=== PATIENT | male | born 1940 | race Caucasian/White ===

== ENCOUNTER 2023-10-03 10:11 | Outpatient (CLI) | payer OTHER ==
[2023-10-03 11:29] LABS: Hematocrit 39.3 % (38.8-50.0); Hemoglobin 13.1 g/dL (13.5-17.5); Mean Corpuscular HGB CONC 33.3 g/dL (32.0-36.0); Mean Corpuscular Hemoglobin 29.4 pg (27.0-33.0); Mean Corpuscular Volume 88.3 fl (81.2-95.1); Platelet Count 167 10x3/uL (150-450); RBC Distribution Width 13.5 % (11.5-14.5); Red Blood Cell (RBC) Count 4.45 10x6/uL (4.32-5.72); White Blood Cell (WBC) Count 5.6 10x3/uL (3.5-10.5)
[2023-10-03 11:30] LABS: Anion Gap 11 mmol/L (10-20); BUN (Urea Nitrogen) 29 mg/dL (8.4-25.7); Calc. Creatinine Clearance 0 mL/min (70-130); Calcium 8.7 mg/dL (7.8-10.44); Carbon Dioxide 20 mmol/L (23-31); Chloride 113 mmol/L (98-107); Estimated GFR 36; Glucose 158 mg/dL (83-110); Potassium 4.2 mmol/L (3.5-5.1); Sodium 140 mmol/L (136-145)
== END 2023-10-03 10:12 | disposition home or self-care (01) ==
LOC: LABBT 10:11
PROVIDERS: ATTEND Neurological Surgery
DX: Z01.818 Encounter for other preprocedural examination (principal)
CPT/HCPCS: 80048; 85027; 93005; 93010

== ENCOUNTER 2023-10-04 05:39 | Day surgery (SDC) | payer OTHER ==
[2023-10-02 14:26] VITALS: BMI 34.4
[2023-10-04] MEDS ORDERED: CEFAZOLIN 2 GM VIAL ONE ×2 (06:07→10:28)
[2023-10-04] MEDS ORDERED: Sodium Chloride 0.9% 100 ML ONE ×2 (06:07→10:28)
[2023-10-04] MEDS ORDERED: PROPOFOL 20 ML ONE (06:18)
[2023-10-04] MEDS ORDERED: fentaNYL PF 100 MCG/2 ML SYRINGE ONE ×2 (06:18→08:36)
[2023-10-04] MEDS ORDERED: Rocuronium Bromide 10 MG/ML (10ML VIAL) ONE (06:23)
[2023-10-04] MEDS ORDERED: Lidocaine 1% PF 5 ML VIAL ONE (06:23)
[2023-10-04] MEDS ORDERED: EPINEPHrine 1 MG/ML VIAL ONE (06:35)
[2023-10-04] MEDS ORDERED: Thrombin 5000 UNITS/5 ML VIAL ONE (06:35)
[2023-10-04] MEDS ORDERED: Bupivacaine PF 0.5% 30 ML VIAL ONE (06:36)
[2023-10-04] MEDS ORDERED: Ondansetron PF 4 MG/2 ML Vial ONE (07:27)
[2023-10-04] MEDS ORDERED: Dexamethasone 20 MG/5 ML VIAL ONE (07:27)
[2023-10-04] MEDS ORDERED: PHENYLEPHRINE-NS 100 MCG/ML 10 ML SYRINGE ONE (07:49)
[2023-10-04] MEDS ORDERED: SUGAMMADEX SODIUM 200 MG/2 ML VIAL ONE (08:06)
[2023-10-04] MEDS ORDERED: fentaNYL 50 mcg/mL 1 mL Vial ONE (08:24)
[2023-10-04] MEDS ORDERED: Tamsulosin HCl 0.4 MG CAP ONE (08:36)
[2023-10-04] MEDS ORDERED: Acetaminophen/Codeine 30-300mg Tablet ONE (09:42)
== END 2023-10-04 11:00 | disposition home or self-care (01) ==
LOC: EDBD → SDC 05:39
PROVIDERS: ATTEND Neurological Surgery
PROC: 01NB0ZZ Release Lumbar Nerve, Open Approach (ICD-10-PCS; principal; 2023-10-04)
DX: M48.062 Spinal stenosis, lumbar region with neurogenic claudication (principal); M54.16 Radiculopathy, lumbar region; I10 Essential (primary) hypertension; E11.9 Type 2 diabetes mellitus without complications; K21.9 Gastro-esophageal reflux disease without esophagitis; Z79.84 Long term (current) use of oral hypoglycemic drugs; Z79.82 Long term (current) use of aspirin; Z85.038 Personal history of other malignant neoplasm of large intestine; Z79.899 Other long term (current) drug therapy
CPT/HCPCS: 63047; J0171; J3010; J0665; J1100; J2405; J2704; J3490